=== PATIENT | female | born 1985 | race Caucasian/White ===

== ENCOUNTER 2022-03-12 08:54 | Emergency (ER) | payer OTHER ==
[2022-03-12 09:31] LABS: #Monocytes 1.2 10x3/uL (0.0-1.1); #Neutrophils 7.4 10x3/uL (1.5-8.4); %Basophils 0.2 % (0.0-2.0); %Eosinophils 0.2 % (0.0-6.0); %Lymphocytes 7.8 % (18.0-47.0); %Monocytes 13.1 % (0.0-10.0); %Neutrophils 78.4 % (40.0-75.0); Hemoglobin 12.7 g/dL (12.0-15.5); Mean Corpuscular Volume 88.5 fl (81.6-98.3); Mean Platelet Volume 10.5 fl (7.4-10.4); Platelet Count 169 10x3/uL (150-450); RBC Distribution Width 11.9 % (11.5-14.5); White Blood Cell (WBC) Count 9.4 10x3/uL (3.5-10.5)
[2022-03-12 09:45] LABS: ALT (SGPT) 21 U/L (8-55); AST (SGOT) 14 U/L (5-34); Albumin 4.3 g/dL (3.5-5.0); Alkaline Phosphatase 49 U/L (40-110); Anion Gap 13 mmol/L (10-20); BUN (Urea Nitrogen) 10 mg/dL (7.0-18.7); Bilirubin, Total 0.4 mg/dL (0.2-1.2); Calc. Creatinine Clearance 0 mL/min (70-130); Calcium 8.7 mg/dL (7.8-10.44); Carbon Dioxide 21 mmol/L (22-29); Chloride 108 mmol/L (98-107); Estimated GFR 90; Globulin 2.6 g/dL (2.4-3.5); Glucose 97 mg/dL (70-105); Potassium 3.9 mmol/L (3.5-5.1); Protein, Total 6.9 g/dL (6.0-8.3); Sodium 138 mmol/L (136-145)
[2022-03-12 10:18] LABS: SARS-CoV-2 NAA Rapid Test Not Detected (NotDetected)
[2022-03-12] MEDS ORDERED: Ketorolac Tromethamine 30 MG/ML VIAL ONE (10:20)
== END 2022-03-12 12:08 | disposition home or self-care (01) ==
LOC: CSHERS 08:54
DX: J20.9 Acute bronchitis, unspecified (principal); Z20.822 Contact with and (suspected) exposure to COVID-19
CPT/HCPCS: 71045; 80053; 83605; 84484; 85025; 93005; 96361; 96374; J1885

== ENCOUNTER 2023-04-20 13:31 | Emergency (ER) | payer OTHER, BC ==
[~2023-04-20 13:31] MED LIST: Iopamidol 370 76% 100 ML VIAL ONE
[2023-04-20] MEDS ORDERED: diphenhydrAMINE 50 MG/ML VIAL ONE (14:45)
[2023-04-20] MEDS ORDERED: Metoclopramide HCl 10 MG (2 mL) VIAL ONE (14:45)
[2023-04-20] MEDS ORDERED: Ketorolac Tromethamine 30 MG (1 mL) VIAL ONE (14:46)
[2023-04-20 14:58] LABS: #Eosinphils 0.1 10x3/uL (0.0-0.5); #Monocytes 0.6 10x3/uL (0.0-1.1); #Neutrophils 2.4 10x3/uL (1.5-8.4); %Basophils 0.7 % (0.0-2.0); %Eosinophils 0.9 % (0.0-6.0); %Lymphocytes 44.7 % (18.0-47.0); %Monocytes 11.2 % (0.0-10.0); %Neutrophils 42.1 % (40.0-75.0); Hematocrit 41.2 % (34.9-44.5); Hemoglobin 13.8 g/dL (12.0-15.5); Mean Corpuscular HGB CONC 33.5 g/dL (32.0-36.0); Mean Corpuscular Hemoglobin 30.4 pg (27.0-33.0); Mean Corpuscular Volume 90.7 fl (81.6-98.3); Mean Platelet Volume 10.5 fl (7.4-10.4); Platelet Count 204 10x3/uL (150-450); RBC Distribution Width 11.7 % (11.5-14.5); Red Blood Cell (RBC) Count 4.54 10x6/uL (3.90-5.03); White Blood Cell (WBC) Count 5.7 10x3/uL (3.5-10.5)
[2023-04-20 15:07] LABS: ALT (SGPT) 21 U/L (8-55); AST (SGOT) 12 U/L (5-34); Albumin 4.1 g/dL (3.5-5.0); Alkaline Phosphatase 39 U/L (40-110); Anion Gap 12 mmol/L (10-20); BUN (Urea Nitrogen) 10 mg/dL (7.0-18.7); Bilirubin, Total 0.7 mg/dL (0.2-1.2); Calc. Creatinine Clearance 0 mL/min (70-130); Calcium 8.9 mg/dL (7.8-10.44); Carbon Dioxide 26 mmol/L (22-29); Chloride 106 mmol/L (98-107); Estimated GFR 82; Globulin 2.8 g/dL (2.4-3.5); Glucose 86 mg/dL (70-105); Potassium 3.7 mmol/L (3.5-5.1); Protein, Total 6.9 g/dL (6.0-8.3); Sodium 140 mmol/L (136-145)
[2023-04-20] MEDS ORDERED: Dexamethasone 10 MG/ML VIAL ONE (16:16)
[2023-04-20] MEDS ORDERED: Magnesium 2 GM/50 ML BAG (IN WATER) ONE (16:17)
== END 2023-04-20 17:33 | disposition home or self-care (01) ==
LOC: CSHERS 13:31
DX: R51.9 Headache, unspecified (principal)
CPT/HCPCS: 70450; 70496; 70498; 80053; 85025; 96365; 96366; 96368; 96375; J1100; J1200; J1885; J2765; J3475; Q9967

== ENCOUNTER 2023-06-10 12:06 | Emergency (ER) | payer OTHER, BC ==
[2023-06-10] MEDS ORDERED: methylPREDNISolone Sod Succ/PF 125 MG/2 ML VIAL ONE (12:28)
[2023-06-10] MEDS ORDERED: HYDROmorphone 0.5 MG/0.5 ML SYRINGE ONE (12:28)
[2023-06-10] MEDS ORDERED: diphenhydrAMINE 50 MG/ML VIAL ONE (12:28)
[2023-06-10] MEDS ORDERED: Ondansetron PF 4 MG/2 ML Vial ONE (12:28)
[2023-06-10 12:52] LABS: #Basophils 0.1 10x3/uL (0.0-0.2); #Eosinphils 0.1 10x3/uL (0.0-0.5); #Monocytes 0.6 10x3/uL (0.0-1.1); #Neutrophils 3.4 10x3/uL (1.5-8.4); %Basophils 0.8 % (0.0-2.0); %Eosinophils 1.8 % (0.0-6.0); %Lymphocytes 30.3 % (18.0-47.0); %Monocytes 9.7 % (0.0-10.0); %Neutrophils 57.1 % (40.0-75.0); Hematocrit 38.9 % (34.9-44.5); Hemoglobin 12.9 g/dL (12.0-15.5); Mean Corpuscular HGB CONC 33.2 g/dL (32.0-36.0); Mean Corpuscular Hemoglobin 30.6 pg (27.0-33.0); Mean Corpuscular Volume 92.4 fl (81.6-98.3); Mean Platelet Volume 10.4 fl (7.4-10.4); Platelet Count 170 10x3/uL (150-450); Red Blood Cell (RBC) Count 4.21 10x6/uL (3.90-5.03)
[2023-06-10 13:07] LABS: ALT (SGPT) 35 U/L (8-55); AST (SGOT) 19 U/L (5-34); Albumin 3.9 g/dL (3.5-5.0); Alkaline Phosphatase 41 U/L (40-110); Anion Gap 9 mmol/L (10-20); BUN (Urea Nitrogen) 11 mg/dL (7.0-18.7); Bilirubin, Total 0.3 mg/dL (0.2-1.2); Calc. Creatinine Clearance 0 mL/min (70-130); Calcium 8.2 mg/dL (7.8-10.44); Carbon Dioxide 25 mmol/L (22-29); Chloride 107 mmol/L (98-107); Estimated GFR 91; Globulin 2.3 g/dL (2.4-3.5); Glucose 96 mg/dL (70-105); Potassium 3.9 mmol/L (3.5-5.1); Protein, Total 6.2 g/dL (6.0-8.3); Sodium 137 mmol/L (136-145)
[2023-06-10] MEDS ORDERED: Iopamidol 300 61% 100 ML VIAL FS ONE (13:38)
== END 2023-06-10 15:10 | disposition home or self-care (01) ==
LOC: CSHERS 12:06
DX: N83.201 Unspecified ovarian cyst, right side (principal)
CPT/HCPCS: 74176; 74177; 80053; 81001; 83605; 85025; 96365; 96374; 96375; J0696; J1170; J1200; J1885; J2270; J2405; J2930; Q9967

== ENCOUNTER 2023-09-23 17:42 | Emergency (ER) | payer BC ==
[2023-09-23] MEDS ORDERED: Acetaminophen 500 MG TAB ONE (18:07)
== END 2023-09-23 18:49 | disposition home or self-care (01) ==
LOC: CSHERS 17:42
DX: S91.201A Unspecified open wound of right great toe with damage to nail, initial encounter (principal); X58.XXXA Exposure to other specified factors, initial encounter

== ENCOUNTER 2024-05-31 18:56 | Emergency (ER) | payer OTHER ==
[2024-05-31 19:45] LABS: Bilirubin Neg (Negative); Blood, Urine 25 (Negative); Clarity Clear (Clear); Glucose, Urine (Dipstick) Normal (Negative); Ketone, Urine Negative (Negative); Leukocyte 25 (Negative); Nitrite Negative (Negative); Protein, Urine (Dipstick) 15 mg/dl (Neg-Trace); Specific Gravity, Urine 1.025 (1.005-1.030); Urobilinogen Normal mg/dL (Less than 2)
[2024-05-31] MEDS ORDERED: HYDROcodone/Acetaminophen 5/325 mg Tablet ONE ×2 (19:50→20:21)
[2024-05-31 20:06] LABS: Pregnancy Test - Urine (BHCG) Negative (Negative); Pregu Control Background? CLEAR/WHITE (CLR/WHITE); Pregu Control Bar Appear? YES (CONTROL BAR); Specific Gravity 1.025 (1.002-1.036)
[2024-05-31 20:09] LABS: CAUTI Indications for Culture Pelvic or flank pain; RBC/HPF 0-3 HPF (0-3); WBC/HPF 0-3 HPF (0-3)
[2024-05-31 20:10] LABS: Bacteria/HPF 2+ HPF (None Seen); Urine Culture Reflex No No
== END 2024-05-31 20:30 | disposition home or self-care (01) ==
LOC: CSHERS 18:56
DX: S79.912A Unspecified injury of left hip, initial encounter (principal); R35.0 Frequency of micturition; X58.XXXA Exposure to other specified factors, initial encounter; Y93.02 Activity, running
CPT/HCPCS: 81001; 81025; 99283

== ENCOUNTER 2025-04-03 18:06 | Emergency (ER) | payer OTHER ==
[2025-04-03] MEDS ORDERED: predniSONE 20 MG TAB ONE (19:52)
[2025-04-03] MEDS ORDERED: Acetaminophen 500 MG TAB ONE (19:53)
[2025-04-03] MEDS ORDERED: Benzonatate 100 MG CAP ONE (20:01)
== END 2025-04-03 20:54 | disposition home or self-care (01) ==
LOC: CSHERS 18:06
DX: J40 Bronchitis, not specified as acute or chronic (principal); M94.0 Chondrocostal junction syndrome [Tietze]
CPT/HCPCS: 71046; 87428; 93005; J7512